=== PATIENT | male | born 1945 | race Caucasian/White ===

== ENCOUNTER → 2016-08-30 | Outpatient (CLI) | payer MEDICARE ==
--- NOTE | 2016-08-30 13:38 | RAD ---
EXAM DESCRIPTION: XR WRIST 3 OR MORE VIEWSXR WRIST 3 OR MORE VIEWS CLINICAL HISTORY: 71 y/o ,M, PAIN COMPARISON: None. IMPRESSION: Three views of left wrist demonstrate widening of scapholunate interval suggestion of a ligamentous injury. On the lateral radiograph there is a osseous fragment seen along the dorsal aspect of the right wrist noted which could be compatible with a triquetrum fracture. Electronically signed by: Jordon Merrill MD 08/30/2016 13:36
== END | disposition home or self-care (01) ==
LOC: RAD 10:33
PROVIDERS: ATTEND Orthopaedic Surgery
DX: M25.531 Pain in right wrist (principal)